=== PATIENT | female | born 1945 | race Caucasian/White ===

== ENCOUNTER 2021-01-22 13:29 | Emergency (ER) | payer MEDICARE, SELFPAY ==
[2021-01-22 13:38] VITALS: BP 158/81; PULSE 89; RESP 16; TEMP 36.6; O2SAT 98
--- NOTE | 2021-01-22 13:53 | ED.EYEPROB ---
HPI - Eye Problem General Chief complaint: Eye Problems Stated complaint: Redness around both Eyes Time Seen by Provider: 01/22/21 13:54 Source: patient and RN notes reviewed Mode of arrival: ambulatory Limitations: no limitations History of Present Illness HPI Narrative: 75-year-old female presents concern for itching around both eyes. Reports symptoms started 2 weeks ago, she began using [id number] allergy pills and eyedrops which slightly improved symptoms, however symptoms did not resolve and have worsened. She denies purulent discharge, pain, vision changes. Denies upper respiratory symptoms. MD chief complaint: eye redness Related Data Home Medications Medication Instructions Recorded Confirmed atorvastatin 40 mg PO DAILY 01/22/21 01/22/21 gabapentin 800 mg PO TID 01/22/21 01/22/21 hydrocodone-acetaminophen 10 - 325 tablet PO Q4-6H PRN 01/22/21 01/22/21 valsartan-hydrochlorothiazide 1 tablet PO DAILY 01/22/21 01/22/21 Allergies Allergy/AdvReac Type Severity Reaction Status Date / Time No Known Allergies Allergy Verified 01/22/21 13:52 Review of Systems Review of Systems: CONSTITUTIONAL: Denies malaise, chills, sweats, or fever. EYES: Denies visual changes, redness, or discharge. ENT: Denies rhinorrhea, congestion, sinus pain, otalgia or sore throat. SKIN: Reports itchy rash around both eyes All systems reviewed & are unremarkable except as noted in HPI and below PMFSH Comments At time of signature, agree with nursing past medical, surgical, social and family history. There is no relevant family history pertinent to the presenting complaint Exam Narrative: GENERAL: Well-appearing, well-nourished, and in no acute distress. HEAD: Normocephalic, atraumatic. EYES: PERRLA, conjunctivae clear, sclera clear and EOMI. No drainage. ENT: Nares clear. Mucous membranes moist. NECK: Supple. CHEST: No respiratory distress. Speaks in full sentences. HEART: Regular rate and rhythm. SKIN: Warm, dry. Erythematous rash noted around both eyes, eyelids NEURO: Alert and oriented x3. PSYCH: Normal mood and affect Course Course Emergency Course: Patient is aware of diagnosis, understands and agrees to treatment plan. Anticipatory guidance given. Patient agrees to follow-up as directed and is aware of reasons to seek care at the emergency department. Portions of this record may have been created with voice recognition software Vital Signs Vital signs: Vital Signs Temperature 97.8 F 01/22/21 13:38 Pulse Rate 89 01/22/21 13:38 Respiratory Rate 16 01/22/21 13:38 Blood Pressure 158/81 H 01/22/21 13:38 Pulse Oximetry 98 01/22/21 13:38 Temperature 97.8 F 01/22/21 13:38 Pulse Rate 89 01/22/21 13:38 Respiratory Rate 16 01/22/21 13:38 Blood Pressure 158/81 H 01/22/21 13:38 Pulse Oximetry 98 01/22/21 13:38 Reviewed. Patient has history of hypertension MDM - Eye Problem MDM Narrative Medical decision making narrative: Exam findings show no acute concerns or changes; patient is non-toxic appearing and is in no distress. Patient is appropriate for outpatient treatment and follow-up. Differential Diagnosis Differential diagnosis: Likely conjunctivitis, periorbital cellulitis and other (Eyelid dermatitis) Critical Care Time Critical Care Time Critical Care Time: No Discharge Plan Discharge Clinical Impression: Dermatitis of eyelid Qualifiers: Dermatitis of eyelid type: unspecified Laterality: bilateral Qualified Code(s): H01.9 - Unspecified inflammation of eyelid Patient Disposition: Home, Self-Care Condition: Stable Instructions: Dermatitis (ED) Additional Instructions: Avoid rubbing and scratching her eyelids. Only touch her eyelids with clean, rinsed hands. Wash her eyelids with plain soap and water or a sensitive cream cleanser. Avoid contact with any potential allergens. Avoid cosmetics. If symptoms persist, worsen please make an appointment with your primary care
[2021-01-22 13:57] VITALS: BP 158/81; PULSE 89; RESP 16; TEMP 36.6; O2SAT 98
== END 2021-01-22 14:20 | disposition home or self-care (01) ==
PROVIDERS: Emergency Provider Nurse Practitioner; PCP Internal Medicine
DX: L30.9 Dermatitis, unspecified (principal); E78.00 Pure hypercholesterolemia, unspecified; I10 Essential (primary) hypertension
CPT/HCPCS: 99203; G0463

== ENCOUNTER 2021-03-29 16:12 | Emergency (ER) | payer MEDICARE, SELFPAY ==
[2021-03-29 16:22] VITALS: BP 146/73; PULSE 82; RESP 16; TEMP 36.6; O2SAT 98
[2021-03-29 16:37] VITALS: BP 146/73; PULSE 82; RESP 16; TEMP 36.6; O2SAT 98
--- NOTE | 2021-03-29 16:41 | ED.URI ---
HPI - URI/Sore Throat General Chief Complaint: Upper Respiratory Infection Stated Complaint: Congestion, Runny nose Time Seen by Provider: 03/29/21 16:41 Source: patient Mode of arrival: ambulatory History of Present Illness HPI Narrative: PATIENT WAS COVID TESTED 2 DAYS AGO AND WAS NEGATIVE. PATIENT CONTINUES TO HAVE NASAL CONGESTION. PATIENT IS NOT TAKING ANYTHING OVER THE COUNTER FOR HER SYMPTOMS. MD elicited complaint: nasal congestion Pertinent past history: COPD Related Data Home Medications Medication Instructions Recorded Confirmed atorvastatin 40 mg PO DAILY 01/22/21 03/29/21 gabapentin 800 mg PO TID 01/22/21 03/29/21 hydrocodone-acetaminophen 10 - 325 tablet PO Q4-6H PRN 01/22/21 03/29/21 valsartan-hydrochlorothiazide 1 tablet PO DAILY 01/22/21 03/29/21 carvedilol 12.5 mg PO BID 03/29/21 03/29/21 hydrochlorothiazide 25 mg PO DAILY 03/29/21 03/29/21 potassium 99 mg PO DAILY 03/29/21 03/29/21 Allergies Allergy/AdvReac Type Severity Reaction Status Date / Time No Known Allergies Allergy Verified 03/29/21 16:33 Review of Systems Review of Systems: CONSTITUTIONAL: Denies chills, or sweats. Reports fever and generalized body aches EYES: Denies visual changes, redness, or discharge. ENT: Denies otalgia. Reports nasal congestion runny nose and sore throat CARDIOVASCULAR: Denies chest pain, palpitations, or edema. RESPIRATORY: Denies dyspnea. Reports occasional cough GASTROINTESTINAL: Denies abdominal pain, nausea, vomiting, or diarrhea. GENITOURINARY: Denies dysuria or hematuria. SKIN: Denies rash or itching. MUSCULOSKELETAL: Denies back pain, joint pain, or myalgia. Reports generalized body aches NEUROLOGIC: Denies headache, numbness, or weakness. PSYCHIATRIC: Denies anxiety or depression. PMFSH Comments At time of signature, agree with nursing past medical, surgical, social and family history. There is no relevant family history pertinent to the presenting complaint Exam Narrative: The patient is a well-developed, well-nourished in no acute distress. SKIN: Skin is warm and dry without erythema, swelling or exudate. There is good turgor. No tenting. HEAD: Atraumatic. Normocephalic. No temporal or scalp tenderness. EYES: Moist and bright. Sclera and conjunctivae normal. No discharge. PERRLA. Extraocular motions intact. Gross visual acuity intact. EARS: Pinna is normal shape and contour. Clear external auditory canals. TM pearly cesar with good cone of light, no erythema or suppuration. Bilateral cerumen noted no gross hearing deficit. NOSE: pink, moist mucosa with good air movement. Clear rhinorrhea without nasal flaring. Septum midline. Mouth: moist mucous membranes. THROAT; mild erythema noted to posterior oropharynx with moderate postnasal drainage. Without exudate or ulceration.. Uvula midline. Normal movement of soft palate. NECK: Supple and nontender with full range of motion without discomfort. No meningeal signs. LUNGS: Equal and bilateral breath sounds without wheezes, rales or rhonchi. CHEST: The chest wall is without retractions or use of accessory muscles. HEART: Has a regular rate and rhythm without murmur, gallops, click or rub. ABDOMEN: Soft, nontender with positive active bowel sounds. No rebound tenderness. EXTREMITIES: Without cyanosis, clubbing or edema. Equal 2+ distal pulses and 2 second capillary refill noted. NEUROLOGIC: alert, active, . The patient moves all extremities with normal muscle strength. Normal muscle tone is noted. Normal coordination is noted. NO focal neurological findings noted. Course Vital Signs Vital signs: Vital Signs Temperature 36.6 C 03/29/21 16:22 Pulse Rate 82 03/29/21 16:22 Respiratory Rate 16 03/29/21 16:22 Blood Pressure 146/73 H 03/29/21 16:22 Pulse Oximetry 98 03/29/21 16:22 Temperature 36.6 C 03/29/21 16:37 Pulse Rate 82 03/29/21 16:37 Respiratory Rate 16 03/29/21 16:37 Blood Pressure 146/73 H 03/29/21 16:37 Pulse Oxime
== END 2021-03-29 16:50 | disposition home or self-care (01) ==
PROVIDERS: Emergency Provider Nurse Practitioner Family; PCP Internal Medicine
DX: J06.9 Acute upper respiratory infection, unspecified (principal); G62.9 Polyneuropathy, unspecified; E78.00 Pure hypercholesterolemia, unspecified; I10 Essential (primary) hypertension
CPT/HCPCS: 73502; 99213; G0463

== ENCOUNTER → 2021-03-29 17:15 | Outpatient (CLI) | payer MEDICARE, SELFPAY ==
--- NOTE | ~2021-03-29 | XR_ITS ---
EXAMINATION: XR hip RT min 2V DATE: 03/29/2021 17:33 INDICATION: Right hip pain. TECHNIQUE: 2 views of right hip were obtained. COMPARISON: None. FINDINGS: Bone alignment is normal. No fracture. There is severe right hip osteoarthritis. IMPRESSION: 1. Severe right hip osteoarthritis. Reviewed, dictated and finalized at location A.
== END ==
PROVIDERS: PCP Internal Medicine; Referring Provider Anesthesiology; Visit Provider Anesthesiology
DX: M25.551 Pain in right hip (principal); M16.11 Unilateral primary osteoarthritis, right hip
CPT/HCPCS: 73502

== ENCOUNTER 2021-09-15 15:27 | Emergency (ER) | payer MEDICARE, SELFPAY ==
--- NOTE | 2021-09-15 15:33 | ED.EYEPROB ---
HPI - Eye Problem General Chief complaint: Eye Problems Stated complaint: Eye Problem Time Seen by Provider: 09/15/21 15:33 Source: patient and RN notes reviewed History of Present Illness HPI Narrative: Patient is a 76-year-old female who presents the urgent care with complaints of bilateral eye irritation. Patient states it started 2 weeks ago and she has had increased watery eyes, itching and surrounding redness. Patient states she has been putting antiitch cream around the eyes and using refresh drops. Patient denies of any injury to the eye. States that this happened last year and seemed to improve it with some cream. However the cream has not been working this time around. No other acute complaints. Denies any vision changes. No acute distress noted. Patient aware of the plan of care. Some parts of this dictation were generated by voice recognition software and may contain typographical and/or grammatical inaccuracies. Related Data Home Medications Medication Instructions Recorded Confirmed atorvastatin 40 mg PO DAILY 01/22/21 09/15/21 gabapentin 800 mg PO TID 01/22/21 09/15/21 hydrocodone-acetaminophen 10 - 325 tablet PO Q4-6H PRN 01/22/21 09/15/21 valsartan-hydrochlorothiazide 1 tablet PO DAILY 01/22/21 09/15/21 carvedilol 12.5 mg PO BID 03/29/21 09/15/21 hydrochlorothiazide 25 mg PO DAILY 03/29/21 09/15/21 potassium 99 mg PO DAILY 03/29/21 09/15/21 Allergies Allergy/AdvReac Type Severity Reaction Status Date / Time No Known Allergies Allergy Verified 09/15/21 15:42 Review of Systems Review of Systems: CONSTITUTIONAL: Denies fever, chills, or sweats. EYES: Reports of bilateral eye redness, itchiness and watery eyes ENT: Denies rhinorrhea, congestion, sore throat, or otalgia. CARDIOVASCULAR: Denies chest pain, palpitations, or edema. RESPIRATORY: Denies cough or dyspnea. GASTROINTESTINAL: Denies abdominal pain, nausea, vomiting, or diarrhea. GENITOURINARY: Denies dysuria or hematuria. SKIN: Denies rash or itching. MUSCULOSKELETAL: Denies back pain, joint pain, or myalgia. NEUROLOGIC: Denies headache, numbness, or weakness. All other systems reviewed are negative, except as documented in HPI. PMFSH Comments At the time of my signature, I reviewed and agree with the nursing past medical, surgical, social, and family history. There is no relevant family history pertinent to the patient complaint. Exam Narrative: GENERAL: This is a well-nourished, well-developed patient, in no apparent distress. HEAD: normocephalic, atraumatic. EYES: PERRL. Moderately injected conjunctive a with mild bilateral edema to upper eyelids. Moderately surrounding erythemic periorbital dermatitis EARS: External ears normal NOSE: External nose normal with no obvious nasal discharge, nares without redness, no rhinorrhea. THROAT: Mucous membranes moist NECK: Neck supple CARDIOVASCULAR: Regular rate and rhythm without murmurs, gallops, or rubs. RESPIRATORY: Clear to auscultation. Breath sounds equal bilaterally. No wheezes, rales, or rhonchi. SKIN: warm, intact with no suspicious lesions or rash, good texture and turgor. NEURO: awake, alert, and oriented to person, place and time. There were no obvious focal neurologic abnormalities. EXTREMITIES: No clubbing, cyanosis, or edema. Course Course Level of Care: Express Care Visit Vital Signs Vital signs: Vital Signs Temperature 99.1 F 09/15/21 15:35 Pulse Rate 84 09/15/21 15:35 Respiratory Rate 14 09/15/21 15:35 Blood Pressure 149/68 H 09/15/21 15:35 Pulse Oximetry 97 09/15/21 15:35 Temperature 99.1 F 09/15/21 15:35 Pulse Rate 84 09/15/21 15:35 Respiratory Rate 14 09/15/21 15:35 Blood Pressure 149/68 H 09/15/21 15:35 Pulse Oximetry 97 09/15/21 15:35 Reviewed-patient is informed that they may have pre-hypertension or hypertension based on a blood pressure reading in the department. I recommend the patient call the primary care provider listed on t
[2021-09-15 15:35] VITALS: BP 149/68; PULSE 84; RESP 14; TEMP 37.3; O2SAT 97
== END 2021-09-15 16:05 | disposition home or self-care (01) ==
PROVIDERS: Emergency Provider Nurse Practitioner Family; PCP Internal Medicine
DX: L30.9 Dermatitis, unspecified (principal); E78.00 Pure hypercholesterolemia, unspecified; I10 Essential (primary) hypertension
CPT/HCPCS: 99213; G0463

== ENCOUNTER 2025-02-27 11:53 | Emergency (ER) | payer MEDICARE, SELFPAY ==
--- OUTSIDE RECORDS SUMMARY | 2024-08-13 05:00 | XMS_ITS ---
Author Organization [facility] Address [address] [place] [address] [address] [address] Care Team Providers Care Repairer Art Objects Name Role Phone Salvatore Tavarez Primary Care Provider Unavail able Samanta Pagan Unavailable [phone] Encounters Encounter Location Date Provider Diagnosis [address] [place], [place] [id number] 08/13/2024 Samanta Pagan Plan Of Treatment Next Appt Details Provider Name:Samanta Dietz i, 05/06/2025 01:30:00 PM, [address] [place] [address], [address], [place], [place], [id number], Progress Notes * PUGHColleenirene SolisDOB:1945 ( 79 yo F)Acc No.[id number]:08/13/2024 Progress Notes Patient: Licha SAAVEDRA Provider: Shabnam Pagan MD :1945 A ge:78 Y S ex:Female Date:08/13/2024 Address:[address] [place], [place] [id number] Pcp:Salvatore Tavarez Subjective: * Chief Complaints: * * Medical History: Objective: * Vitals: Assessment: Plan: * Treatment: * Images: * Electronic signature of Hawa Pagan on 02/27/2025 at 12:21 PM CDT Sign off status: Pending * Provider: Shabnam Pagan MD Date: 0 08/13/2024 Generated for Benito perez/Jc/eTransmitting on: 0 02/27/2025 12:21 PM CDT
--- OUTSIDE RECORDS SUMMARY | 2024-08-27 06:30 | XMS_ITS ---
Author Organization [facility] Address [address] [place] [address] [place] [address] Care Team Providers Care Mold Changer Name Role Phone VEENA HUANG MD Primary Care Provider Jian Aric Kim Unavailable [phone] REASON FOR VISIT Left > Right Low Back Pain MEDICATIONS Medication SIG (Take, Route, Frequency, Duration) Notes Start Date End Date Status HYDROcodone-Acetaminophen 10-325 MG 1 tablet as needed Orally every 6 hrs Active Valsartan-hydroCHLOROthiazi de 160-25 MG 1 tablet Orally Once a day Active Gabapentin 800 MG 1 tablet Orally 3x/day Active Aspirin 325 MG 1 tablet Orally Once a day for 30 day(s) Active Carvedilol 12.5 MG 1 tablet with food O rally Twice a day for 30 day(s) Active Vitamin B12 100 MCG as directed Orally Active Magnesium 400 MG as directed Orally Active Cephalexin 500 MG 1 capsule Orally nery ry 6 hrs for 7 days 03/16/2022 Active Atorvastatin Calcium 40 MG 1 tablet Oral ly Once a day for 30 day(s) Active VITAL SIGNS Blood pressure systolic 152 mm Hg 08/28/19 25 Blood pressure diastolic 89 mm Hg 025 Heart Rate 86 /min 08/27/2024 Respiratory Rate 18 /min 08/27/2024 Height 4 ft 11 in in 08/27/2024 Weight 211 lbs 08/27/2024 BMI 42.61 kg/m2 08/27/2024 Oximetry 97 % 08/27/2024 Post procedure VS: ET=673/99 , P=85, R=18, Spo2= 97%Pain= 7/10.Discharged home ambulatory with walker assistance and self in no acute distress. Encounters Encounter Location Date Provider Diagnosis [facility] [address] [place] [address] 08/27/2024 Aric Mirta Spondylosis without myelopathy or radiculopathy, lumbar region M47.816 and Spondylosis without myelopathy or radiculopathy, lumbosacral region M47.817 ASSESSMENTS Encounter Date Diagnosis Assessment Notes Treatment Notes Treatment Clinical Notes Section Notes 08/27/2024 Spondylosis without myelopathy or radiculopathy, lumbar region (ICD-10 - M47.816) 08/27/2024 Spondylosis without myelopathy or radiculopathy, lumbosacral region (ICD-10 - M47.817) 08/27/2024 Other The patient voiced understanding of the treatment plan and all questions were addressed. Obtain informed consent: Bilateral Lumbar 1-3 Medial Branch Nerve Block under fluoroscopy. Monitor pulse, blood pressure and SaO2 before, after and as needed during procedure. Verify if the patient is currently taking blood thinner. Verify patients is not currently on antibiotics for infection. Patient may drive home. CARE PLAN: Knowledge deficit: Will verbalize understanding of the proposed procedure, including risk of electrical burn, complications and benefits of the procedure? Will the patient exhibit understanding of the discharge instructions? Safety: The potential for injury related to surgery was assessed; Fire risk score determined, test completed if applicable. Risk for injury related to wrong patient, site, procedure. TIME OUT for safety of patient and includes patient name, , procedure site, side, level, allergies, blood thinners, antibiotics, surgical counts, consents correct and signed etc. Risk for infection: Implements aseptic technique, protects from cross-contaminati on, performs skin preparations. Pain/Discomfort: Patient verbalizes acceptable level of pain relief prior to discharge and the ability to engage in desired activity. I HAVE REVIEWED THE PATIENT'S MEDICATION LIST AND HAVE RECONCILED THE ABOVE MEDICATIONS. PATIENT GOALS AND SAFETY CONCERNS HAVE BEEN ADDRESSED. RN initials CR PLAN OF TREATMENT Treatment Notes Assessment Notes Other The patient voiced understanding of the treatment plan and all questions were addressed. Obtain informed consent: Bilateral Lumbar 1-3 Medial Branch Nerve Block under fluoroscopy. Monitor pulse, blood pressure and SaO2 before, after and as needed during procedure. Verify if the patient is currently taking blood thinner. Verify patients is not currently on antibiotics for infection. Patient may drive home. CARE PLAN: Knowledge deficit: Will verbalize understanding of the proposed procedure, including risk of electrical burn, complications and benefits of the procedure? Will the patient exhibit understanding of the discharge instructions? Safety: The potential for injury related to surgery was assessed; Fire risk score determined, test completed if applicable. Risk for injury related to wrong patient, site, procedure. TIME OUT for safety of patient and includes patient name, , procedure site, side, level, allergies, blood thinners, antibiotics, surgical counts, consents correct and signed etc. Risk for infection: Implements aseptic technique, protects from cross-contamination, performs skin preparations. Pain/Discomfort: Patient verbalizes acceptable level of pain relief prior to discharge and the ability to engage in desired activity. I HAVE REVIEWED THE PATIENT'S MEDICATION LIST AND HAVE RECONCILED THE ABOVE MEDICATIONS. PATIENT GOALS AND SAFETY CONCERNS HAVE BEEN ADDRESSED. RN initials CR Next Appt Details Follow Up: Left L4-5+L5-S1 T FE on 09/03, Reason: Procedure Notes * Category Sub-Category Detail Notes Medial Branch Nerve Block Procedure: L1-3 M edial Branch Nerve Block Under Fluoroscopy Location: Bilateral Anesthesia: Local without IV sed ation Operative Technique: After the risks, be nefits, alternative treatment options and potential complications related to the procedure were discussed, informed consent was obtained. The specific risks of this procedure including pain, bleeding, infection, nerve damage, spinal cord injury, paralysis, total spinal anesthesia resulting in cardiopulmonary arrest/, respiratory distress requiring intubation, neuritis after radiofrequency ablation, hyperglycemia, insomnia, hair loss, muscle atrophy, skin depigmentation, weight gain, fluid retention, adrenal suppression, osteoporosis resulting in fractures, avascular necrosis of the hip, cataracts, bleeding gastric ulcer, worsening pain and failure to relieve pain were discussed and the patient is agreeable to proceeding at this time. The patient was placed in the prone position on the fluoroscopy table. Standard ASA monitors were applied. The back was prepped and draped in the usual sterile fashion with chlorhexidine 2%/IPA 70%. The bilateral L2, L3 and L4 pedicles were identified with x-ray using an AP view. A 23 gauge 3.5 inch spinal needle was inserted in a gun barrel fashion to the junction of the superior articular process and transverse process at the upper outer quadrant of the pedicle until periosteum was contacted at each level bilaterally. 3 mL of 0.25% Preservative-Free bupivacaine was mixed. After negative aspiration for blood, air or CSF, 0.5 mL of this solution was injected at each level, blocking the bilateral L1-3 medial branch nerves. The needles were then removed, the skin was cleaned and band-aids were placed over the puncture sites. The patient tolerated the procedure well, was able to ambulate without difficulty and was monitored for 20 minutes. The patient remained hemodynamically and neurologically stable. No complications were observed. The patient noted a 90% reduction in his typical back pain associated with extension and lateral rotation of the lumbar spine. Postoperative instructions were reviewed with the patient. The patient was discharged home in good condition with a independent driver. X-ray time: 14 seconds Safe Surgery Practices First Critical Point Isabelle ent identified by verbal and ID band. Surgical site marked. Assessement of allergies, airway and aspiration risk. Assessed if patient is on anticoagulant. Operataive Consent signed. Patient has discussed procedure with physician, Damaris Amezcua 08/27/2024 11:31:27 AM > Second Critical Point TIME OUT: Confirm patient identity, procedure and surgical incision site. Patient in proper position and safety straps placed appropriately. ASA score:3 Fire Risk Score:1. Alcohol based prep solution had significant time for fumes to dissipate. Confirm surgical team truck driver and roles. Anticipated critical events. Essential imaging displayed as appropriate. Fluoroscopy precautions taken if applicable. Equipment and supplies in room. Verify patient is not if applicable, Damaris Amezcua 08/27/2024 11:31:31 AM > Third Critical Point SAFE SURGERY PRACTI ODALYS-POST: Complete count of surgical instruments and accessories. Identify more patient concerns for recovery and management of the patient. Patient remains free from injury related to surgery. The patient tolerated the procedure well and there were no complications. The patient was taken to the recovery area. The patient remained in stable condition with no apparent complications. Vital signs stable. Injection/procedure/surgical site clean, dry and intact. Post procedure discharge instructions were give to the patient and a follow up appointment was confirmed. The patient was discharged with information on how to reach the clinic at anytime for questions or concerns. Patient discharged ambulatory. Patient denies complaints or questions, Damaris Amezcua 08/27/2024 12:17:35 PM > Progress Notes * Examination Category Sub-Category Detail Notes Category Not es Examination/ Pre-Anesthesia Assessment General: The patient is alert and oriented X 3 in moderate distress secondary to pain HEENT: Normocephalic, atrau matic. PERRL. The oropharynx is clear Neck: There is full range of motion of the cervical spine Heart: Regular rate and rhy thm Chest: Clear to auscultatio n bilaterally Abdomen: Soft, obese and jeramy gn Musculoskeletal and Extremities: There i s tenderness to palpation over the bilateral L2-3 through L5-S1 facet joints. Extension and lateral rotation of the lumbar spine reproduces the patient's typical axial low back pain. Luma's, [place]'s and Gaenslen's are positive on the right. There is tenderness to palpation over the right sacroiliac joint and greater trochanter. There is tenderness to palpation over the bilateral lumbar paraspinal. The patient's right hip pain is closely reproduced by the right hip abduction. The patient's midline low back and left buttock postoperative incisions are approximated and are healing without signs or symptoms of bleeding or dehiscence Neurological: There is positive st raight leg raising on the right. There are no focal strength deficits in bilateral lower extremities Skin: Clean, dry and intac t. Post permanent SCS implant incisions- axial low back and left buttock are well approximated and are healed without s/so of infection or bleeding Psychiatric: Mood and affect are normal History and Physical Notes * HPI (History of Present Illness) Category Sub-Category Detail Notes Category Not es Pain Management Radiographic Imaging Includes an MRI lumbar spine done on 01/19/21 demonstrating an L3-5 laminectomy. At L2-3 demonstrates an annular disc bulge in combination with facet arthropathy and ligamentum flavum thickening there is severe central canal and severe right foraminal stenosis. At L3-4 there is severe right foraminal stenosis. At L4-5 there is left greater than right lateral recess stenosis. At L5-S1 there is left greater than right lateral recess stenosis. An x-ray of the right hip done on 03/29/2021 demonstrates severe right hip osteoarthritis Assessment and Follow-up: Follow-up Plan [email or web address] ari:: Yes MIPS Quality 2020: MIPS Documented:: Compliant
--- OUTSIDE RECORDS SUMMARY | 2024-08-28 03:24 | XMS_ITS ---
Author Organization [facility] Address [address] [place] [address] [place] [address] Care Team Providers Care Box Toe Flanger Stitchdowns Name Role Phone VEENA HUANG MD Primary Care Provider Unav ailAric Barahona Unavailable [phone] REASON FOR VISIT Post Procedure Follow Up Call Encounters Encounter Location Date Provider Diagnosis [facility] [address] [place] [address] 08/28/2024 Aric Kirby PLAN OF TREATMENT No Information
--- OUTSIDE RECORDS SUMMARY | 2024-09-03 06:15 | XMS_ITS ---
Author Organization [facility] Address [address] [place] [address] [place] [address] Care Team Providers Care Wood Tool Maker Name Role Phone REINA HODGES, VEENA Primary Care Provider Jian Aric Kim Unavailable [phone] REASON FOR VISIT Left > Right Low Back Pain, Left Lower Exremity Pain MEDICATIONS Medication SIG (Take, Route, Frequency, Duration) Notes Start Date End Date Status HYDROcodone-Acetaminophen 10-325 MG 1 tablet as needed Orally every 6 hrs Active Atorvastatin Calcium 40 MG 1 tablet Oral ly Once a day for 30 day(s) Active Magnesium 400 MG as directed Orally Active Vitamin B12 100 MCG as directed Orally Active Gabapentin 800 MG 1 tablet Orally 3x/day Active Valsartan-hydroCHLOROthiazi de 160-25 MG 1 tablet Orally Once a day Active Aspirin 325 MG 1 tablet Orally Once a day for 30 day(s) Active Carvedilol 12.5 MG 1 tablet with food O rally Twice a day for 30 day(s) Active VITAL SIGNS Blood pressure systolic 134 mm Hg 09/04/19 25 Blood pressure diastolic 88 mm Hg 025 Heart Rate 78 /min 09/03/2024 Respiratory Rate 18 /min 09/03/2024 Height 4 ft 11 in in 09/03/2024 Weight 211 lbs 09/03/2024 BMI 42.61 kg/m2 09/03/2024 Oximetry 94 % 09/03/2024 Post procedure VS=BP 127/71, P 66, R 18, Spo2=94%.Discharged home per ambulatory with walker assistance, in no acute distress. 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 Obtain informed consent: Left Lumbar 4-5+ Lumbar 5-Sacral 1Transforaminal Epidural Streoid Injection under fluoroscopy. Monitor pulse, blood pressure and [...] all questions were addressed. Obtain informed consent: Left Lumbar 4-5+ Lumbar 5-Sacral 1Transforaminal Epidural Streoid Injection under fluoroscopy. Monitor pulse, blood pressure and [...] initials CR Next Appt Details Follow Up: F/U 09/10/24, Reas on: Procedure Notes * Category Sub-Category Detail Notes Transforaminal Epidural Steroid Injection Locati on Left Levels L4-5, L5-S1 Anesthesia Local without IV sed ation Operative Technique After the risks, autumn efits, alternative treatment options and potential complications related to the procedure were discussed, informed consent was obtained. The specific risks of this procedure including pain, bleeding, infection, spinal headache, persistent spinal fluid leak, epidural hematoma, nerve damage, spinal cord injury, paralysis, total spinal anesthesia resulting in cardiopulmonary arrest/, respiratory distress requiring intubation, insomnia, hyperglycemia, hair loss, muscle atrophy, skin depigmentation, weight gain, fluid retention, adrenal suppression, immunosuppression, osteoporosis resulting in fractures, avascular necrosis of the hip, cataracts, bleeding gastric ulcer, worsening pain and failure to relieve pain were discussed and the patient is agreeable to proceeding at this time. The patient was placed in the prone position on the fluoroscopy table and standard ASA monitors were applied. The back was prepped and draped in the usual sterile fashion with chlorhexidine 2%/IPA 70%. The c-arm was obliqued and tilted to identify the above selected levels. The left L4-5 + L5-S1 neural foramina were identified and a 23 gauge 3.5 inch spinal needle was inserted under fluoroscopic guidance towards the junction of the inferior endplate and superior articular process until the superior articular process was contacted at both levels. A lateral view was taken and the needle tip was advanced into the posterior aspect of the neuroforamen. The subcutaneous structures were anesthetized with 3 mL of 1% Preservative-Free lidocaine during needle placement. An AP view was taken and after negative aspiration for blood, air or CSF, 4 mLs (2 mLs at each level) of Omnipaque 240 contrast dye was injected under live fluoroscopy for an epidurogram showing good spread within the epidural space and along the selected nerve root. No intravascular or intrathecal spread was noted. A solution of 10 mg of Preservative-Free Dexamethasone (10 mg/mL), plus 3 mL of 0.25% Preservative-Free bupivacaine was mixed and after negative aspiration 2 mL of this solution was slowly injected into the epidural space at each level. The needles were removed, the skin was cleaned and band-aids were placed over the puncture sites. The patient tolerated the procedure well, was able to ambulate without difficulty and was monitored for 20 minutes. Patient reports a 90% reduction in typical pain immediately postprocedure. The patient remained hemodynamically and neurologically stable. No apparent complications were observed. Postoperative instructions were reviewed with the patient. The patient was then discharged home in good condition with a pizza delivery driver. X-ray time: 22 seconds Safe [facility] Practices First Critical Point Isabelle ent identified by verbal and ID band. Surgical site marked. Assessement of allergies, airway and aspiration risk. Assessed if patient is on anticoagulant. Operataive Consent signed. Patient has discussed procedure with physician, Damaris Amezcua 09/03/2024 11:23:12 AM > Second Critical Point TIME OUT: Confirm patient identity, procedure and surgical incision site. Patient in proper position and safety straps placed appropriately. ASA score:3 Fire Risk Score:1. Alcohol based prep solution had significant time for fumes to dissipate. Confirm surgical prepared foods team leader and roles. Anticipated critical events. Essential imaging displayed as appropriate. Fluoroscopy precautions taken if applicable. Equipment and supplies in room. Verify patient is not if applicable, Damaris Amezcua 09/03/2024 11:23:15 AM > Third Critical Point SAFE SURGERY [...] Patient denies complaints or questions, Damaris Amezcua 09/03/2024 12:07:27 PM > Progress Notes * Examination Category [...] patient's typical axial low back pain. Luma's, [place]'s and Gaenslen's are positive on the right. [...] hip osteoarthritis Assessment and Follow-up: Follow-up Plan documen ari:: Yes MIPS Quality 2020: MIPS Documented:: Compliant
--- OUTSIDE RECORDS SUMMARY | 2024-09-04 03:59 | XMS_ITS ---
Author Organization [facility] Address [address] [facility] [facility] [place] [address] Care Team Providers Care Stone Polisher Hand Name Role Phone [facility] Primary Care Provider Unav ailAric Barahona Unavailable [phone] REASON FOR VISIT Post Op Call Encounters Encounter Location Date Provider Diagnosis [facility] [address] [facility] [place] [address] 09/04/2024 Aric Kirby PLAN OF TREATMENT No Information
--- OUTSIDE RECORDS SUMMARY | 2024-09-10 06:45 | XMS_ITS ---
Author Organization [facility] Address [address] [facility] [place] [address] Care Team Providers Care Cashier And Waiter/Waitress Name Role Phone VEENA HUANG MD Primary Care Provider Unav ailAric Barahona Unavailable [phone] REASON FOR VISIT FOLLOW UP Encounters Encounter Location Date Provider Diagnosis [facility] [address] [facility] [place] [address] 09/10/2024 Aric Kirby PLAN OF TREATMENT No Information History and Physical Notes * HPI (History [...]
--- NOTE | 2025-02-27 11:59 | ED.EAR ---
HPI - Ear Problem General Chief complaint: Ear Stated complaint: Ear Pain Time Seen by Provider: 02/27/25 12:07 Source: patient, RN notes reviewed and old records reviewed Mode of arrival: ambulatory Limitations: no limitations History of Present Illness HPI Narrative: 79-year-old female presents to the [facility] with complaints of having left ear pain 3 days ago with redness. No pain currently. States that she took the amoxicillin that her dentist gives your which she believes helps. States she has had issues like this on and off quite a while, states that area is crust over and she just takes it off. Wears bilateral hearing aids Related Data Home Medications ?Medication ?Instructions ?Recorded ?Confirmed ?Last Taken ?Type atorvastatin 40 mg tablet 40 mg PO DAILY 01/22/21 09/15/21 Unknown History gabapentin 800 mg tablet 800 mg PO TID 01/22/21 09/15/21 Unknown History hydrocodone 10 mg-acetaminophen 10 - 325 tablet PO Q4-6H PRN Pain 01/22/21 09/15/21 Unknown History 325 mg tablet carvedilol 12.5 mg tablet 12.5 mg PO BID 03/29/21 09/15/21 Unknown History potassium 99 mg tablet 99 mg PO DAILY 03/29/21 09/15/21 Unknown History duloxetine 30 mg capsule,delayed mg PO 02/27/25 Unknown History release Allergies Allergy/AdvReac Type Severity Reaction Status Date / Time No Known Allergies Allergy Verified 09/15/21 15:42 Review of Systems Review of Systems: All systems reviewed & are unremarkable except as noted in HPI and below Constitutional: Constitutional: Reports no additional constitutional complaints ENT: Reports as per HPI Musculoskeletal: Musculoskeletal: Reports no additional musculoskeletal complaints Integumentary/Breasts: Skin/Breast: Reports system reviewed and no additional complaints, except as docu PMFSH Comments At the time of my signature, I reviewed and agree with the nursing past medical, surgical, social, and family history. There is no relevant family history pertinent to the patient complaint. Exam Const: General: cooperative, no acute distress, well developed, alert, ill appearing chronically; not acutely and well nourished Nutritional Appearance: well nourished and obese Orientation/consciousness: patient oriented x3 Limitations: no limitations HENMT: Head: normal to inspection Ears: TM's normal bilaterally, EAC's normal, mastoids normal and no periauricular adenopathy Outer ear/TM images:  1. Crusting with possible abrasion, surrounding erythema, no swelling, no fluctuance, no drainage Mouth: Yes Normal oral and palatal mucosa present, Yes lip normal, Yes tongue normal and Yes moist mucous membranes Throat: posterior oropharynx normal Eyes: General: appearance normal, both eyes and all related structures Alignment and Position: alignment normal Neck: Neck: normal visual inspection, full ROM, no lymphadenopathy and no meningeal signs Chest: Chest palpation & inspection: normal inspection of the chest Resp: Effort & Inspection: normal respiratory effort and able to speak in complete sentences Cardio: Rate: regular rate Skin: General skin exam: normal color and no rashes or lesions noted Neuro: General: patient oriented x3, gait normal, moves all extremities and no meningeal signs Cognition (Neuro): normal cognition Speech: normal speech Gait exam (Neuro): Normal gait present Extrem: General: normal to inspection, full ROM, capillary refill normal and normal gait Psych: Appearance: grossly normal and well kempt Mental Status: mental status grossly normal Speech and movement: Normal speech and movement present and Clear speech present Affect: normal affect Attitude: cooperative Course Course Level of Care: Express Care Visit Vital Signs Vital signs: Vital Signs Temperature 98.3 F 02/27/25 12:10 Pulse Rate 76 02/27/25 12:10 Respiratory Rate 18 02/27/25 12:10 Blood Pressure 142/68 H 02/27/25 12:10 Pulse Oximetry 95 02/27/25 12:10 Oxygen Delivery Room Air 02/27/25 12:10 Temperature 98.3 F 02/27/25 12:10 Pulse Rate 76 02/27/25 12:10 Respiratory Rate 18 02/27/25 12:10 Blood Pressure 142/68 H 02/27/25 12:10 Pulse Oximetry 95 02/27/25 12:10 Oxygen Delivery Room Air 02/27/25 12:10 Reviewed Medical Decision Making MDM Narrative Medical decision making narrative: Patient sitting in exam room. Patient presents with 3 day history of left upper ear discomfort externally, redness, pain. Currently with no pain. States that she took amoxicillin. Discussed that she should not be taking antibiotics, inappropriate use Mild pink, crusting noted to the inner upper ear Will cover with antibiotic, topical bacitracin Discussed importance of following up with primary care provider Discharge instructions reviewed with patient, as well as provided in writing per nursing staff. The instructions also include specific and strict return/GO TO THE ER as well as f/u information. All questions have been answered, and the patient deny any further questions with discharge and discharge plan. Some parts of this dictation were generated by voice recognition software and may contain typographical and/or grammatical inaccuracies. Differential Diagnosis Differential Diagnosis: Dermatitis, cellulitis Medical Records Medical records reviewed: Yes I reviewed the external patient's medical records. Vital Signs Vital Signs: Vital Signs Temperature 98.3 F 02/27/25 12:10 Pulse Rate 76 02/27/25 12:10 Respiratory Rate 18 02/27/25 12:10 Blood Pressure 142/68 H 02/27/25 12:10 Pulse Oximetry 95 02/27/25 12:10 Oxygen Delivery Room Air 02/27/25 12:10 Temperature 98.3 F 02/27/25 12:10 Pulse Rate 76 02/27/25 12:10 Respiratory Rate 18 02/27/25 12:10 Blood Pressure 142/68 H 02/27/25 12:10 Pulse Oximetry 95 02/27/25 12:10 Oxygen Delivery Room Air 02/27/25 12:10 Reviewed Lab Data Lab results reviewed: Yes I reviewed the patient's lab results. Labs: Reviewed Critical Care Time Critical Care Time Critical Care Time: No Discharge Plan Discharge Clinical Impression: Dermatitis of external ear Patient Disposition: Home Condition: Stable Instructions: Antibiotic Form, Dermatitis (ED) Additional Instructions: Wash area twice daily with warm soapy water, pat dry. Apply bacitracin after washing it twice a day. Take the oral antibiotic as prescribed Today your blood pressure was 142/68. Follow-up with your primary care provider this week For worsening symptoms go directly to the emergency room Patient Language: Cambodian Prescriptions: New doxycycline monohydrate 100 mg tablet 100 mg PO BID Qty: 14 0RF No Action loratadine [Claritin] 10 mg tablet 10 mg PO DAILY 14 Days Qty: 14 0RF carvedilol 12.5 mg Tablet 12.5 mg PO BID potassium 99 mg Tablet 99 mg PO DAILY prednisone 20 mg tablet See Rx Instructions .ROUTE .COMPLEX Qty: 7 0RF Rx Instructions: 20 mg orally ;Take 2 tablets daily for days 1 through 2, take 1 tablet daily days 3 through 5. atorvastatin 40 mg tablet 40 mg PO DAILY hydrocodone-acetaminophen 10-325 mg tablet 10 - 325 tablet PO Q4-6H PRN (Reason: Pain) gabapentin 800 mg tablet 800 mg PO TID duloxetine 30 mg capsule,delayed release(DR/EC) PO Follow-up/Referrals: Corby,Mateusz Cruz MD [Primary Care Provider] - 1 Week Clinical Impression: Dermatitis of external ear Time of Disposition: 12:20
[2025-02-27 12:10] VITALS: BP 142/68; PULSE 76; RESP 18; TEMP 36.8; O2SAT 95
--- OUTSIDE RECORDS SUMMARY | 2025-02-27 12:21 | XMS_ITS | Clinical Summary ---
Author Organization [facility] [address] [facility] Address [address] [place] [address] Care Team Providers Care Calender Operator Name Role Phone Salvatore Tavarez MD Primary Care Provider + Pan Radford MD Unavailable [phone] Allergies No known active allergies Medications multivit-minerals- ferrous fum (MULTI VITAMIN) 9 mg iron/15 mL liquid take 1 daily 0 0 09/06/19 14 Active cyanocobalamin (vitamin B-12) 1,000 mcg tablet take 1 by Oral route every day 90 3 09/04/19 14 Active aspirin 325 mg tablet take 1 tablet by oral route every day 0 0 03/30/20 16 Active atorvastatin (LIPITOR) 40 mg tablet TAKE ONE TABLET BY MOUTH AT BEDTIME 30 11 03/30/20 16 Active gabapentin (NEURONTIN) 800 mg tablet Take 1 tablet (800 mg total) by mouth 3 (three) times a day 04/25/20 22 Active valsartan-hydrochl orothiazide (DIOVAN-HCT) 160-25 mg per tablet 1 tablet Active carvediloL (COREG) 12.5 mg tablet every 12 hours Active magnesium oxide,aspartate,ci tr 400 mg magnesium capsule as directed Active multivitamin with minerals (Hair,Skin and Nails) tablet Take 1 tablet by mouth daily Active acidophilus-pectin , citrus 100 million cell-10 mg capsule Take by mouth daily Active ascorbic acid (VITAMIN C) 500 mg tablet,chewableInd ications:Vitamin deficiency prevention Take 1 tablet/chew tab (500 mg total) by mouth daily 30 tablet/chew tab 08/05/19 23 Active aspirin 325 mg enteric coated tabletIndications: Deep Vein Thrombosis Prevention Take 1 tablet (325 mg total) by mouth daily 42 tablet 08/05/19 23 Active ondansetron ODT (ZOFRAN-ODT) 4 mg disintegrating tabletIndications: nausea and vomiting Take 1 tablet (4 mg total) by mouth every 6 (six) hours as needed for nausea or vomiting 20 tablet 2 08/04/19 23 Active Additional Information Patient not taking.Reported on 05/13/2024 oxyCODONE-acetamin ophen (PERCOCET) 5-325 mg per tabletIndications: Pain Take 1-2 tablets by mouth every 4 (four) hours as needed for pain 40 tablet 08/04/19 Active Additional Information Patient not taking.Reported on 05/13/2024 senna-docusate (PERICOLACE) 8.6-50 mgIndications:cons tipation Take 2 tablets by mouth 2 (two) times a day 60 tablet 2 08/04/19 23 Active HYDROcodone-acetam inophen (NORCO) 10-325 mg per tablet Take 1 tablet by mouth 4 (four) times a day 08/30/19 23 Active amoxicillin (AMOXIL) 500 mg tablet/capsule Take 4 tabs by mouth 1 hour before procedure 4 tablet/capsu le 2 11/18/19 Active Active Problems Problem Noted Date Diagnosed Date Bilateral impacted cerumen 04/24/2023 Assessment & Plan (05/13/2024 2:07 PM PASSENGER SCREENER): Avoid ear cleaning techniques Follow up in one year Continue hearing aids Assessment & Plan (04/24/2023 12:11 PM CDT): Avoid ear cleaning techniques Follow up in one year Continue hearing aids Hip abductor tendinitis, right 11/01/2022 Trochanteric bursitis, right hip 11/01/2022 Osteoarthritis of spine with radiculopathy, lumb ar region 11/01/2022 Primary osteoarthritis of right hip 04/29/2022 Sensorineural hearing loss ( SNHL) of left ear with restricted hearing of right ear 03/28/2022 Assessment & Plan (03/28/2022 11:39 AM CDT): Avoid ear cleaning techniques Avoid water to ears Follow up in one year for ear check Continue hearing aids Healthcare maintenance 02/21/2017 Medication management 02/21/2017 Essential hypertension 02/21/2017 Dyslipidemia 02/21/2017 Morbid obesity 02/21/2017 BMI 40.0-44.9, adult 02/21/2017 Neuralgia/neuritis - ankle/foot 07/29/2014 Overview (09/29/2016): Neuropathy of foot Immunizations Immunization Administration Dates Next Due Influenza, Split 03/31/2010,03/26/2009 Influenza, Trivalent, High D ose, Split, Preservative Free, Intramuscular 03/29/2016 Influenza, Trivalent, IM (MDV) 5,03/26/2014,04/02/2013,04/15,05/11/2011,04/28/2011 Influenza, Unspecified 03/26/2022 Pneumococcal Conjugate PCV 13 04/07/2015 Pneumococcal Polysaccharide PPV23 05/04/2012,06/2008 Tdap 08/26/2013 Surgical History Surgery Date Site/Laterality Comments HYSTERECTOMY 1988 Hysterectomy, partial KIDNEY STONE SURGERY kidney stones removed OTHER SURGICAL HISTORY 2016 CVA: Medical Management BACK SURGERY 06/26/2012 - 06/25/2013 fusion in the lumbar region Medical History Medical History Date Comments Arthritis Arthritis Calculus of kidney 2004 kidney stones Hx Other 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 Hx Other Medical Back Surgery; C omments: MDB 03/01/2016 -spinal abscess Hx Other Medical 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 Hx Other Medical CVA; Outcome: i mproved Hypertension Stroke (HCC) TIA Peripheral neuropathy Osteoarthritis Family History Medical History Relation Name Comments Alzheimer's disease Father Alzheime r's Disease; Other Father Diabetes-border line; Parkinsonism Mother Parkinson's dis ease; Arthritis Other Relation Name Status Comments Father Mother Other Social History Tobacco Use Types Packs/Day Years Used Date Smoking Tobacco: Never Smokeless Tobacco: Never Tobacco Cessation:Counseling Given: Not Answered Alcohol Use Standard Drinks/Week Comments Yes 0 (1 standard drink = 0.6 oz pur e alcohol) AUDIT-C Answer Date Recorded Q1: How often do you have a drink containing alcohol? Never 08/03/2022 Q2: How many drinks containi ng alcohol do you have on a typical day when you are drinking? Patient does not drink Q3: How often do you have si x or more drinks on one occasion? Never 08/03/2022 PHQ-2 Answer Date Recorded PHQ-2 Total Score (If total score is 3 or more points, staff should administer the PHQ-9) 0 08/03/2022 Personal Safety Answer Date Recorded Getting School Help Needed Denies 06/23 Comments No Sex and Gender Information Value Date Recorded Sex Assigned at Not on file Legal Sex Female 1:58 PM PASSENGER SCREENER Gender Identity Not on file Sexual Orientation Not on file Obstetrics History Last Filed Vital Signs Vital Sign Reading Time Taken Comments Blood Pressure 132/88 12/30/2023 3:17 PM CDT Pulse 75 12/30/2023 3:17 PM CDT Temperature 36.8 C (98.3 F) 12/30/2023 3:17 PM CDT Respiratory Rate 20 12/30/2023 3:17 PM CDT Oxygen Saturation 96% 12/30/2023 3:17 PM CDT Inhaled Oxygen Concentration - - Weight 95.3 kg (210 lb) 05/13/2024 1:49 PM PASSENGER SCREENER Height 149.9 cm (4' 11.02) 05/13/2024 1:[address] Body Mass Index 42.39 05/13/2024 1:49 PM PASSENGER SCREENER Plan of Treatment Health Maintenance Due Date Last Done Comments Hepatitis B Screening 1963 Well Visit 65+ 2009 Zoster Vaccine (2 of 3) 10/24/2013 08/29/2013 Depression Screening 07/19/2023 07/19/2022, 02/22/20 17 Fall Risk Assessment 08/04/2023 08/04/2022 DTaP/Tdap/Td Vaccine (2 - Td or Tdap) 08/27/2023 08/26/2013 Covid-19 Vaccine (3 - 2023-2 5 season) 2024 06/07/2021, 09/12/2020 Osteoporosis Screening-Bone Density Scan 01/24/2025 01/24/2023, 01/24/2023, 02/04/2016 Influenza Vaccine (#1) 2025 2, 04/01/2021, 03/19/2020, Additional history exists Pneumococcal vaccine 65+ Completed 015, 05/04/2012, 03/26/2009 Colon Cancer Screening-CT Colonography Discontinued 05/25/2015, 05/25/2015, 05/25/2015 Colon Cancer Screening-Colonoscopy Discontinued 05/25/2015, 05/25/2015, 05/25/2015 Colon Cancer Screening-DNA Stool Discontinued 05/25/2015, 05/25/2015, 05/25/2015 Colon Cancer Screening-FIT Discontinued 05/25, 05/25/2015, 05/25/2015 Colon Cancer Screening-FOBT Discontinued 04/28, 05/25/2015, 05/25/2015 Colon Cancer Screening-Sigmoidoscopy Discontinued 05/25/2015, 05/25/2015, 05/25/2015 Colorectal Cancer Screening Discontinued Medical Devices Implanted Type Area Spline Rolling Machine Job Setter Device Identifier Shelf Expiration Date Model / Serial / Lot Spinal Cord Stimulator Spinal Cord Stimulator Left: Spine Lumbar [employer] [place] 52mm Sector Hip Shell Acetabular Gription Sterile Latex Free [id number] - [id number] Implanted:Qty: 1 on 08/03/2022 by Pan Radford MD at [facility] Right: Hip [employer] [id number] 05/25/2032 [id number] / / [id number] [employer] [place] 52mm 36mm Hip Neutral Liner Acetabular Altrx Sterile Latex Free [id number] - [id number] Implanted:Qty: 1 on 08/03/2022 by Pan Radford MD at [facility] Right: Hip [employer] [id number] 05/25/2027 [id number] / / [id number] [employer] [place] 6.5mm 35mm Acetabular Cancellous Screw Bone Sterile 1217-35-500 - [id number] Implanted:Qty: 1 on 08/03/2022 by Pan Radford MD at [facility] Right: Hip [employer] [id number] 02/24/2032 0 / / [id number] [employer] Articul/Wan 36mm Cementless Hip +5mm 06/08 Taper Head Femoral Latex Free [id number] - [id number] Implanted:Qty: 1 on 08/03/2022 by Pan Radford MD at [facility] Right: Hip [employer] [id number] 05/25/2027 [id number] / / [id number] [employer] [place] 105mm Collar Hip 5 Standard Offset Stem Femoral 1010-11-050 - [id number] Implanted:Qty: 1 on 08/03/2022 by Pan Radford MD at [facility] Right: Hip [employer] [id number] 05/25/2032 1010-04-30 0 / / [id number] Procedures Procedure Name Priority Date/Time Associated Diagnosis Comments DEXA SCAN Routine 02/04/2016 COLONOSCOPY IMAGES 05/25/2015 from Last 3 Months or Most Recently Relevant to Health Maintenance Results * DEXA SCAN (02/04/2016) DEXA Scan Abnormal Comment:Osteopenia us Historical Provider HEALTH MAINTENANCE Final Result * COLONOSCOPY IMAGES (05/25/2015) Anatomical Region Laterality Modality Other Narrative 05/25/2015 Ordered by an unspecified provider. us Historical Provider GI PROCEDURE ORDERABLES F inal Result from Last 3 Months or Most Recently Relevant to Health Maintenance Insurance [facility] [place]IC[place] [id number] [place] Advance Directives For more information, please contact: [phone] Documents on File Type Date Recorded Patient Prestidigitator Expl anation Power of Transportation Dispatcher 08/03/2022 8:56 AM Advance Directives and Livin g Will 08/03/2022 8:56 AM * Full Code (Latest Code Status on File) Date Activated Date Inactivated Comments 08/03/2022 2:59 PM 08/04/2022 6:35 PM Care Teams Calender Operator Relationship Specialty Start Date End Date Salvatore Tavarez MD [address] [address] PCP - General 09/23/16 Pan Radford MD [address] [place] [address] [address] [place] [address] Surgeon Orthopedic Surgery 08/04/22
--- OUTSIDE RECORDS SUMMARY | 2025-02-27 12:21 | XMS_ITS | Patient Health Record ---
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 Name Role Phone Salvatore Tavarez Primary Care Provider Unavail able JordantraciSamanta Unavailable [phone] Results Component Value Reference Range Notes PTH, INTACT AND CALCIUM Reviewed date:08/19/2024 04:26:09 PM Interpretation: Performing Lab:[facility] Fwd: [facility], [address] [place], [address] Silas Briceño MD Notes/Report: NON-FASTING PARATHYROID HORMONE, INTACT 58 16-77 pg/mL Interpretive Guide Intact PTH Calcium ------- Normal Parathyroid Normal Normal Hypoparathyroidism Low or Low Normal Low Hyperparathyroidism Primary Normal or High High Secondary High Normal or Low Tertiary High High Non-Parathyroid Hypercalcemia Low or Low Normal High CALCIUM 9.5 8.6-10.4 mg/dL MICROALBUMIN, RANDOM URINE ( W/CREATININE) Reviewed date:08/19/2024 04:26:15 PM Interpretation: Performing Lab:[facility] Fwd: [facility], [address] [place], [address] Silas Briceño MD Notes/Report: NON-FASTING; NON-FASTING; NON-FASTING; NON-FASTING; NON-FAST CREATININE, RANDOM URINE 221 20-275 mg/dL ALBUMIN, URINE 2.1 See Note: mg/dL Reference Range: Reference Range Not established ALBUMIN/CREATININE RATIO, RANDOM URINE 10 <30 mg/g creat The ADA defines abnormalities in albumin excretion as follows: Albuminuria Category Result (mg/g creatinine) Normal to Mildly increased <30 Moderately increased 30-299 Severely increased > OR = 300 The ADA recommends that at least two of three specimens collected within a 3-6 month period be abnormal before considering a patient to be within a diagnostic category. URINALYSIS, COMPLETE W/REFLE X TO CULTURE Reviewed date:08/19/2024 04:26:56 PM Interpretation: Performing Lab:[facility], [address] [place], [address] Silas Briceño MD Notes/Report: NON-FASTING; NON-FASTING; NON-FASTING; NON-FASTING; NON-FAST COLOR DARK YELLOW YELLOW APPEARANCE CLEAR CLEAR SPECIFIC GRAVITY 1.027 1.001-1.035 PH < OR = 5.0 5.0-8.0 GLUCOSE NEGATIVE NEGATIVE BILIRUBIN NEGATIVE NEGATIVE KETONES NEGATIVE NEGATIVE OCCULT BLOOD NEGATIVE NEGATIVE PROTEIN NEGATIVE NEGATIVE NITRITE NEGATIVE NEGATIVE LEUKOCYTE ESTERASE NEGATIVE NEGATIVE WBC 6-10 < OR = 5 /HPF RBC 0-2 < OR = 2 /HPF SQUAMOUS EPITHELIAL CELLS 20-40 < OR = 5 /HPF BACTERIA FEW NONE SEEN /HPF CALCIUM OXALATE CRYSTALS FEW NONE OR FEW /HPF HYALINE CAST > 60 NONE SEEN /LPF REFLEXIVE URINE CULTURE CULT URE INDICATED - RESULTS TO FOLLOW CULTURE, URINE, ROUTINE SEE NOTE CULTURE, URINE, ROUTINE Micro Number: [id number] Test Status: Final Specimen Source: Urine Specimen Quality: Adequate Result: Mixed genital schuyler isolated. These superficial bacteria are not indicative of a urinary tract infection. No further organism identification is warranted on this specimen. If clinically indicated, recollect clean-catch, mid-stream urine and transfer immediately to Urine Culture Transport Tube. CBC (H/H, RBC, INDICES, WBC, PLT) Reviewed date:08/19/2024 04:26:48 PM Interpretation: Performing Lab:[facility] Fwd: [facility], [address] [place], [address] Silas Briceño MD Notes/Report: NON-FASTING; NON-FASTING; NON-FASTING; NON-FASTING; NON-FAST WHITE BLOOD CELL COUNT 7.8 3.8-10.8 Thousand/ uL RED BLOOD CELL COUNT 4.17 3.80-5.10 Million/uL HEMOGLOBIN 13.5 11.7-15.5 g/dL HEMATOCRIT 40.1 35.0-45.0 % MCV 96.2 80.0-100.0 fL MCH 32.4 27.0-33.0 pg MCHC 33.7 32.0-36.0 g/dL For adults, a slight decrease in the calculated MCHC value (in the range of 30 to 32 g/dL) is most likely not clinically significant; however, it should be interpreted with caution in correlation with other red cell parameters and the patient's clinical condition. RDW 12.7 11.0-15.0 % PLATELET COUNT 210 140-400 Thousand/uL MPV 10.0 7.5-12.5 fL VITAMIN D, 25-HYDROXY, LC/MS /MS Reviewed date:08/19/2024 04:26:36 PM Interpretation: Performing Lab:[facility] Fwd: [facility], [address] [place], [address] Silas Briceño MD Notes/Report: NON-FASTING; NON-FASTING; NON-FASTING; NON-FASTING; NON-FAST VITAMIN D,25-OH,TOTAL,IA 37 30-100 ng/mL Vitamin D Status 25-OH Vitamin D: Deficiency: <20 ng/mL Insufficiency: 20 - 29 ng/mL Optimal: > or = 30 ng/mL For 25-OH Vitamin D testing on patients on D2-supplementation and patients for whom quantitation of D2 and D3 fractions is required, the QuestAssureD(TM) 25-OH VIT D, (D2,D3), LC/MS/MS is recommended: order code 75069 (patients >2yrs). See Note 1 Note 1 For additional information, please refer to http://education.TDI Bassline/faq/EZK122 (This link is being provided for informational/ educational purposes only.) RENAL FUNCTION PANEL Reviewed date:08/19/2024 04:26:28 PM Interpretation: Performing Lab:[facility] Fwd: [facility], [address] [place], [address] Silas Briceño MD Notes/Report: NON-FASTING; NON-FASTING; NON-FASTING; NON-FASTING; NON-FAST GLUCOSE 100 65-99 mg/dL Fasting reference interval For someone without known diabetes, a glucose value between 100 and 125 mg/dL is consistent with prediabetes and should be confirmed with a follow-up test. UREA NITROGEN (BUN) 31 7-25 mg/dL CREATININE 1.72 0.60-1.00 mg/dL EGFR 30 > OR = 60 mL/min/1.73m2 BUN/CREATININE RATIO 18 6-22 (calc) SODIUM 141 135-146 mmol/L POTASSIUM 4.4 3.5-5.3 mmol/L CHLORIDE 102 98-110 mmol/L CARBON DIOXIDE 29 20-32 mmol/L CALCIUM 9.5 8.6-10.4 mg/dL PHOSPHATE ( PHOSPHORUS) 4.3 2.1-4.3 mg/dL ALBUMIN 4.3 3.6-5.1 g/dL Enhanced PDF Report [id number]-1 (Not yet reviewed by provider) Interpretation: Performing Lab: Notes/Report: NON-FASTING; NON-FASTING; NON-FASTING; NON-FASTING; NON-FAST Clinical PDF Report [id number] (Not yet reviewed by provider) Interpretation: Performing Lab: Notes/Report: NON-FASTING; NON-FASTING; NON-FASTING; NON-FASTING; NON-FAST Clinical PDF Report [id number] (Not yet reviewed by provider) Interpretation: Performing Lab: Notes/Report: NON-FASTING Reason For Referral No Information Medications Medication SIG (Take, Route, Frequency, Duration) Notes Start Date End Date Status Gabapentin 800 MG 1 tablet Orally Thre e times a day Active Vitamin B-12 1000 MCG 1 tablet Orally On ce a day Active Probiotic - Orally Active Carvedilol 12.5 MG 1 tablet Orally twic e a day Active Magnesium 250 MG 2 Tablets Orally Onc e a day Not-Taking Valsartan-hydroCHLOROthia zide 160-25 MG 1 tablet Orally Once a day Active Vitamin D3 25 MCG (1000 UT) 1 capsule Orally Once a day Active Aspirin 325 MG 1 tablet Orally Once a day Active Atorvastatin Calcium 40 MG 1 tablet Orally Once a day Active HYDROcodone-Acetaminophen 7.5-325 MG/15ML 5 ml as needed Orally every 6 hrs Active Stool Softener 100 MG 1 capsule as neede d Orally Once a day Active Vitamin C 1000 MG 1 tablet Orally Once a day; Duration: 30 day(s) Active Potassium 99 MG 1 tablet Orally Once a day; Duration: 30 day(s) Active Calcium 600-200 MG-UNIT 1 tablet with fo od Orally Twice a day; Duration: 30 day(s) Active Multivitamin Adult - Orally Active Social History Alcohol Screen Question Answer Notes Did you have a drink containing alcohol in the p ast year? No Points 0 Interpretation Negative Problems Problem Type SNOMED Code ICD Code Onset Dates Problem Status W/U Status Risk Notes Problem Anemia in chronic kidney disease (104578746) Anemia in chronic kidney disease (D63.1) Active confirmed Problem Chronic kidney disease stage 3 (disorder) (354341429) Chronic kidney disease, stage 3 (moderate) (N18.3) Active confirmed Problem Chronic kidney disease stage 4 (850351877) Chronic kidney disease, stage 4 (severe) (N18.4) Active confirmed Problem Calculus of kidney (37891025) Calculus of kidney (N20.0) Active confirmed followed by urology. 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 Continue current management, targeting a blood pressure 140 over 90 or less. Problem Chronic kidney disease due to hypertension (48358679936039 0) Hypertensive chronic kidney disease with stage 1 through stage 4 chronic kidney disease, or unspecified chronic kidney disease (I12.9) Active confirmed With blood pressure well controlled. Problem Chronic kidney disease stage 3B (disorder) (146729674) Chronic kidney disease, stage 3b (N18.32) Active confirmed presumed from hypertensive nephrosclerosi s, with stable renal function. Vital Signs Heart Rate 69 /min 11/05/2024 Blood pressure diastolic 76 mm Hg 11/05/2024 Height 60 in 11/05/2024 Blood pressure systolic 113 mm Hg 11/05/2024 Weight 211 lbs 11/05/2024 BMI 41.2 kg/m2 11/05/2024 Encounters Encounter Location Date Provider Diagnosis [facility] [address] [place] [address] [address] [place], [place] [id number] 11/05/2024 Samanta Pagan Hypertensive chronic kidney disease with stage 1 through stage 4 chronic kidney disease, or unspecified chronic kidney disease I12.9 ; Chronic kidney disease, stage 3b N18.32 ; Calculus of kidney N20.0 and Other hydronephrosis N13.[address], [place] [id number] 08/07/2024 Samanta Pagan Chronic kidney disease, stage 3b N18.32 ; Proteinuria, unspecified R80.9 and Anemia in chronic kidney disease D63.1 Assessments Encounter Date Diagnosis (ICD Code) Assessment Notes Treatment Notes Treatment Clinical Notes Section Notes 08/07/2024 Chronic kidney disease, stage 3b (ICD-10 - N18.32) 11/05/2024 Hypertensive chronic kidney disease with stage 1 through stage 4 chronic kidney disease, or unspecified chronic kidney disease (ICD-10 - I12.9) With blood pressure well controlled. well controlled, with readings at target. Will continue same regimen. 11/05/2024 Chronic kidney disease, stage 3b (ICD-10 - N18.32) presumed from hypertensive nephrosclerosis , with stable renal function. With stable renal function, will continue current management. she will not benefit from Farxiga or SABI inhibitor/ARBs, because she is neither diabetic nor does she has significant proteinuria. 08/07/2024 Proteinuria, unspecified (ICD-10 - R80.9) 08/07/2024 Anemia in chronic kidney disease (ICD-10 - D63.1) 11/05/2024 Calculus of kidney (ICD-10 - N20.0) followed by urology. Quiescent quiescent. Advised to drink a lot of water 11/05/2024 Other hydronephrosis (ICD-10 - N13.39) of the left kidney from kidney stone, followed by urology. Resolved on the ultrasound of 04/26/2022. 11/05/2024 Other AssessmentChronic kidney disease stage 3b due to hypertension (ICD-10: N18.33, I10) Hypertension, well controlled (ICD-10: I10) Stable laboratory values and overall clinical status PlanContinue the current medication regimen including probiotic tablet, hydrocodone, gabapentin, baby aspirin, vitamin D, vitamin C, magnesium with potassium supplementation as needed, calcium when available, stool softener, and multivitamin. Advise ongoing regular home blood pressure monitoring and stress the importance of adequate hydration to help prevent kidney stone formation. Reinforce routine laboratory monitoring to continue assessing kidney function and overall metabolic status. Plan Of Treatment Pending Test Test Name Order Date RENAL FUNCTION PANEL 09/06/2016 Clinical PDF Report [id number] 10/07/19 22 Clinical PDF Report [id number] 01/30/20 24 Clinical PDF Report [id number] 08/08/19 25 Clinical PDF Report [id number] 08/07/19 25 Clinical PDF Report [id number] 02/13/20 19 Clinical PDF Report [id number] 02/13/20 19 Clinical PDF Report [id number] 08/17/19 Clinical PDF Report [id number] 08/12/19 21 Enhanced PDF Report [id number] 08/07/19 Future Test Test Name Order Date Ultrasound : Kidneys and Bladder RENAL FUNCTION PANEL 04/19/2022 Next Appt Details Provider Name:Samanta Dietz i, 05/06/2025 01:30:00 PM, [address] [facility], [facility] [address], [place], [place], [id number], Insurance Providers Payer Name Payer Address Payer Phone Subscriber Number Group Number Insured Name Patient Relationship to Insured Coverage Start Date Coverage End Date [facility] [address] [place] [id number] Licha Pugh Self - patient is the insured MEDICARE PART B [address] [address] [place], [place] [id number] [phone] [id number] Licha Pugh Self - patient is the insured Medical (General) History Medical History History ICD Code CKD 3 HTN Nephrolithiasis Left hydronephrosis Epidural abscess
--- OUTSIDE RECORDS SUMMARY | 2025-02-27 12:21 | XMS_ITS | Encounter Summary ---
Author Organization [facility] Address [address] [place] [address] Phone Care Team Providers Care Meals On Wheels Driver Name Role Phone Salvatore Tavarez MD Primary Care Provider [phone] Reason for Referral * Radiology Services (Routine) - Authorized Specialty Diagnoses / Procedures Referred By Contac t Referred To Contact Radiology Diagnoses Visit for screening mammogram Procedures PAULA SCREENING BILATERAL DIGITAL W CAD W Salvatore Choudhury MD [address] [place] [address] Phone: tel: fax: Referral ID Status Reason Start Date Expiration Date V isits Requested Visits Authorized [id number] Authorized 02/10/2025 1 1 Encounter Details Date Type Department Care Team (Late st Contact Info) Description 02/10/2025 Transcribe Orders [facility] [address] [place] [address] [place] [address] Salvatore Tavarez MD [address] [place] [address] Visit for screening mammogram (Primary Dx) Social History Tobacco Use Types Packs/Day Years Used Date Smoking Tobacco: Never Assessed Comments No Sex and Gender Information Value Date Recorded Sex Assigned at Not on file Legal Sex Female 9:01 PM CDT Gender Identity Not on file Sexual Orientation Not on file documented as of this encounter Plan of Treatment Upcoming Encounters Date Type Department Care Team (Late st Contact Info) Description 03/07/2025 1:45 PM CDT Appointment [facility] [address] [place] [address] Salvatore Tavarez MD [address] [place] [address] Discharge Disposition: Discharged to home or Selfcare Scheduled Orders Name Type Priority Associated Diagnoses Orde r Schedule PAULA SCREENING BILATERAL DIGITAL W CAD W KACIE Imaging Routine Visit for screening mammogram Expected: 02/10/2025, Expires: 02/10/2026 documented as of this encounter Visit Diagnoses Diagnosis Visit for screening mammogram- Primary Other screening mammogram documented in this encounter Care Teams Meals On Wheels Driver Relationship Specialty Start Date End Date Salvatore Tavarez MD [address] [place] [address] PCP - General Internal Medicine 12/02/22 documented as of this encounter
--- OUTSIDE RECORDS SUMMARY | 2025-02-27 12:22 | XMS_ITS | Patient Health Record ---
Author Organization [facility] Address [address] [place] [address] [place] [address] Care Team Providers Care Crushing Foreman Name Role Phone VEENA HUANG MD Primary Care Provider Jian Aric Kim Unavailable [phone] ALLERGIES No Known Allergies REASON FOR REFERRAL No Information MEDICATIONS Medication SIG (Take, Route, Frequency, Duration) Notes Start Date End Date Status HYDROcodone-Acetaminophen 10-325 MG 1 tablet as needed Orally every 6 hrs Active Gabapentin 800 MG 1 tablet Orally 3x/day Active Valsartan-hydroCHLOROthiazi de 160-25 MG 1 tablet Orally Once a day Active Aspirin 325 MG 1 tablet Orally Once a day for 30 day(s) Active Carvedilol 12.5 MG 1 tablet with food O rally Twice a day for 30 day(s) Active Atorvastatin Calcium 40 MG 1 tablet Oral ly Once a day for 30 day(s) Active Magnesium 400 MG as directed Orally Active Vitamin B12 100 MCG as directed Orally Active SOCIAL HISTORY Tobacco Use: Social History Observation Description Date Details (start date - stop date) Never Smoker NA - NA Sex Assigned At : Social History Observation Description Sex Assigned At Unknown Tobacco Use/Smoking Question Answer Notes Are you a nonsmoker Section Notes: 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 She is with two children. She denies tobacco, alcohol, or illicit drug abuse. 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 She is with two children. She denies tobacco, alcohol, or illicit drug abuse. 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 She is with two children. She denies tobacco, alcohol, or illicit drug abuse. The patient is a retired [employer] [place]. She is with two children. She denies tobacco, alcohol, or illicit drug abuse. The patient is a retired [employer] [place]. She is with two children. She denies tobacco, alcohol, or illicit drug abuse. The patient is a retired [employer] [place]. She is with two children. She denies tobacco, alcohol, or illicit drug abuse. The patient is a retired [place]. She is with two children. She denies tobacco, alcohol, or illicit drug abuse. The patient is a retired [place]. She is with two children. She denies tobacco, alcohol, or illicit drug abuse. The patient is a retired [place]. She is with two children. She denies tobacco, alcohol, or illicit drug abuse. The patient is a retired [employer] [place]. She is with two children. She denies tobacco, alcohol, or illicit drug abuse. The patient is a retired [employer] [place]. She is with two children. She denies tobacco, alcohol, or illicit drug abuse. The patient is a retired [employer] [place]. She is with two children. She denies tobacco, alcohol, or illicit drug abuse. The patient is a retired [employer] [place]. She is with two children. She denies tobacco, alcohol, or illicit drug abuse. The patient is a retired [employer] [place]. She is with two children. She denies tobacco, alcohol, or illicit drug abuse. The patient is a retired [employer] [place]. She is with two children. She denies tobacco, alcohol, or illicit drug abuse. The patient is a retired [employer] [place]. She is with two children. She denies tobacco, alcohol, or illicit drug abuse. The patient is a retired [employer] [place]. She is with two children. She denies tobacco, alcohol, or illicit drug abuse. The patient is a retired [employer] [place]. She is with two children. She denies tobacco, alcohol, or illicit drug abuse. The patient is a retired [employer] [place]. She is with two children. She denies tobacco, alcohol, or illicit drug abuse. The patient is a retired [employer] [place]. She is with two children. She denies tobacco, alcohol, or illicit drug abuse. The patient is a retired [employer] [place]. She is with two children. She denies tobacco, alcohol, or illicit drug abuse. The patient is a retired [employer] [place]. She is with two children. She denies tobacco, alcohol, or illicit drug abuse. The patient is a retired [employer] [place]. She is with two children. She denies tobacco, alcohol, or illicit drug abuse. The patient is a retired [employer] [place]. She is with two children. She denies tobacco, alcohol, or illicit drug abuse. The patient is a retired [employer] [place]. She is with two children. She denies tobacco, alcohol, or illicit drug abuse. The patient is a retired [employer] [place]. She is with two children. She denies tobacco, alcohol, or illicit drug abuse. PROBLEMS Problem Type ICD Code Onset Dates Problem Status W/U Status Risk SNOMED Code Notes Problem Fear of injections and transfusions (F40.231) Active confirmed Fear of medical treatment (144863308) Problem Chronic pain syndrome (G89.4) Active confirmed Chronic yuval n syndrome (249973445) Problem Unilateral primary osteoarthritis, right hip (M16.11) Active confirmed Localized , primary osteoarthritis of the pelvic region and thigh (169249682) Problem Osteoarthritis of hip, unspecified (M16.9) Active confirmed Osteoarthritis of hip (377281453) Problem Pain in right hip (M25.551) Active confirmed Arthralgia of t he pelvic region and thigh (923754755) Problem Sacroiliitis, not elsewhere classified (M46.1) Active confirmed Solitary sacroiliitis (699099027) Problem Spondylosis without myelopathy or radiculopathy, lumbar region (M47.816) Active confirmed Lumbosacral spondylosis without myelopathy (75945390) Problem Spondylosis without myelopathy or radiculopathy, lumbosacral region (M47.817) Active confirmed Lumbosacral spondylosis without myelopathy (disorder) (26681266) Problem Other intervertebral disc degeneration, lumbar region (M51.36) Active confirmed Degeneration of lumbar intervertebral disc (11283664) Problem Radiculopathy, lumbar region (M54.16) Active confirmed Lumbar radiculopathy (594451251) Problem Postlaminectomy syndrome, not elsewhere classified (M96.1) Active confirmed Post-lami nectomy syndrome (17754321) Problem Osseous stenosis of neural canal of lumbar region (M99.33) Active confirmed Spinal stenosis of lumbar region (95381448) Problem USP (current) use of anticoagulants (Z79.01) Active confirmed Long-term curre nt use of anticoagulant (292460009) Problem Spinal stenosis, lumbar region with neurogenic claudication (M48.062) Active confirmed Neurogenic claudication (816065092) VITAL SIGNS Heart Rate 78 /min 09/03/2024 Post procedure VS=BP 127/71, P 66, R 18, Spo2=94%. Discharged home per ambulatory with walker assistance, in no acute distress. Respiratory Rate 18 /min 09/03/2024 Post procedure VS=BP 127/71, P 66, R 18, Spo2=94%. Discharged home per ambulatory with walker assistance, in no acute distress. Oximetry 94 % 09/03/2024 Post procedure VS=BP 127/71, P 66, R 18, Spo2=94%. Discharged home per ambulatory with walker assistance, in no acute distress. Blood pressure diastolic 88 mm Hg 09/03/2024 Post procedure VS=BP 127/71, P 66, R 18, Spo2=94%. Discharged home per ambulatory with walker assistance, in no acute distress. Height 4 ft 11 in in 09/03/2024 Post procedure VS=BP 127/71, P 66, R 18, Spo2=94%. Discharged home per ambulatory with walker assistance, in no acute distress. Blood pressure systolic 134 mm Hg 09/03/2024 Post procedure VS=BP 127/71, P 66, R 18, Spo2=94%. Discharged home per ambulatory with walker assistance, in no acute distress. Weight 211 lbs 09/03/2024 Post procedure VS=BP 127/71, P 66, R 18, Spo2=94%. Discharged home per ambulatory with walker assistance, in no acute distress. BMI 42.61 kg/m2 09/03/2024 Post procedure VS=BP 127/71, P 66, R 18, Spo2=94%. Discharged home per ambulatory with walker assistance, in no acute distress. Encounters Encounter Location Date Provider Diagnosis [facility] [address] [place] [address] [place] [address] 03/05/2024 Aric Stynowick Radiculopathy, lumba r region M54.16 ; Postlaminectomy syndrome, not elsewhere classified M96.1 ; Chronic pain syndrome G89.4 ; Fear of injections and transfusions F40.231 ; Other intervertebral disc degeneration, lumbar region M51.36 and Unilateral primary osteoarthritis, right hip M16.11 [facility] [address] [place] [address] 05/14/2024 Aric Stynowick Radiculopathy, lumba r region M54.16 ; Postlaminectomy syndrome, not elsewhere classified M96.1 ; Chronic pain syndrome G89.4 ; Fear of injections and transfusions F40.231 ; Other intervertebral disc degeneration, lumbar region M51.36 and Unilateral primary osteoarthritis, right hip M16.11 [facility] [address] [place] [address] 08/26/2024 Aric Stynowick Radiculopathy, lumba r region M54.16 ; Spondylosis without myelopathy or radiculopathy, lumbar region M47.816 ; Postlaminectomy syndrome, not elsewhere classified M96.1 ; Chronic pain syndrome G89.4 ; Fear of injections and transfusions F40.231 ; Other intervertebral disc degeneration, lumbar region M51.36 ; Unilateral primary osteoarthritis, right hip M16.11 ; Spondylosis without myelopathy or radiculopathy, lumbosacral region M47.817 and USP (current) use of anticoagulants Z79.01 [facility] [address] [place] [address] 08/27/2024 Aric Stynyumikoick Spondylosis without myelopathy or radiculopathy, lumbar region M47.816 and Spondylosis without myelopathy or radiculopathy, lumbosacral region M47.817 [facility] [address] [place] [address] 08/28/2024 Aric Kirby [facility] [address] [place] [address] 09/03/2024 Aric Kirby Radiculopathy, lumba r region M54.16 ; Spinal stenosis, lumbar region with neurogenic claudication M48.062 and Osseous stenosis of neural canal of lumbar region M99.33 [facility] [address] [facility] [place] [address] 09/04/2024 Aric Kirby [facility] [address] [facility] [place] [address] 09/10/2024 Aric Kirby ASSESSMENTS Encounter Date Diagnosis Assessment Notes Treatment Notes Treatment Clinical Notes Section Notes 03/05/2024 Radiculopathy, lumbar region (ICD-10 - M54.16) The patient's SCS was interrogated reprogrammed in the office today with improved axial low back and bilateral lower extremity neuropathic pain coverage with good paresthesia overlap.She currently denies a need for any injections or interventions at this time. She would like to return to the office in 1 month for follow-up and reevaluation of her pain at that time. 03/05/2024 Postlaminectomy syndrome, not elsewhere classified (ICD-10 - M96.1) 05/14/2024 Radiculopathy, lumbar region (ICD-10 - M54.16) The patient's SCS was interrogated reprogrammed in the office today with improved axial low back and bilateral lower extremity neuropathic pain coverage with good paresthesia overlap. She currently denies a need for any injections or interventions at this time. She would like to return to the office in 1 month for follow-up and reevaluation of her pain at that time. 05/14/2024 Postlaminectomy syndrome, not elsewhere classified (ICD-10 - M96.1) 08/26/2024 Spondylosis without myelopathy or radiculopathy, lumbar region (ICD-10 - M47.816) schedule a bilateral L1-3 medial branch nerve block as a diagnostic and potentially therapeutic endeavor to isolate the source of the patient's facet-generated low back pain originating from the L2-3 and L3-4 facet joints and to ultimately perform radiofrequency ablation for more durable pain relief. The risks of this procedure including pain, bleeding, [...] is agreeable to proceeding at this time. 08/27/2024 Spondylosis without myelopathy or radiculopathy, lumbar region (ICD-10 - M47.816) 08/27/2024 Spondylosis without myelopathy or radiculopathy, lumbosacral region (ICD-10 - M47.817) 09/03/2024 Radiculopathy, lumbar region (ICD-10 - M54.16) 08/26/2024 Radiculopathy, lumbar region (ICD-10 - M54.16) The patient's pain continues she may benefit from scheduling a left L3-4 and L5-S1 transforaminal epidural steroid injection. The risks of this procedure including pain, bleeding, [...] is agreeable to proceeding at this time. 09/03/2024 Spinal stenosis, lumbar region with neurogenic claudication (ICD-10 - M48.062) 08/26/2024 Postlaminectomy syndrome, not elsewhere classified (ICD-10 - M96.1) 09/03/2024 Osseous stenosis of neural canal of lumbar region (ICD-10 - M99.33) 05/14/2024 Chronic pain syndrome (ICD-10 - G89.4) 03/05/2024 Chronic pain syndrome (ICD-10 - G89.4) 03/05/2024 Fear of injections and transfusions (ICD-10 - F40.231) 05/14/2024 Fear of injections and transfusions (ICD-10 - F40.231) 08/26/2024 Chronic pain syndrome (ICD-10 - G89.4) 08/26/2024 Fear of injections and transfusions (ICD-10 - F40.231) 03/05/2024 Other intervertebral disc degeneration, lumbar region (ICD-10 - M51.36) 05/14/2024 Other intervertebral disc degeneration, lumbar region (ICD-10 - M51.36) 03/05/2024 Unilateral primary osteoarthritis, right hip (ICD-10 - M16.11) 05/14/2024 Unilateral primary osteoarthritis, right hip (ICD-10 - M16.11) 08/26/2024 Other intervertebral disc degeneration, lumbar region (ICD-10 - M51.36) 08/26/2024 Unilateral primary osteoarthritis, right hip (ICD-10 - M16.11) 08/26/2024 Spondylosis without myelopathy or radiculopathy, lumbosacral region (ICD-10 - M47.817) 08/26/2024 USP (current) use of anticoagulants (ICD-10 - Z79.01) The patient was instructed to discontinue aspirin for 6 days prior to the procedure. I made the patient aware that they will be at an increased risk for a thromboembolic event during this time and they are willing to accept this risk. The patient was instructed to notify their primary care physician and/or build engineer to obtain clearance prior to discontinuing this medication. 05/14/2024 Other The above-named patient was evaluated in conjunction with Dr. Kirby. I have discussed and reviewed all of the pertinent history, physical examination findings and diagnostic imaging results with him. As a result of our discussion, Dr. Kirby has determined the above assessment and directed the treatment plan. This note was dictated using voice recognition software and therefore inadvertent errors may have occurred. This note was dictated by HIGINIO Littlejohn. Total Time Spent with Patient and Medical Decision Makin minutes 08/26/2024 Other The above-named patient was evaluated in conjunction with Dr. Kirby. I have discussed and reviewed all of the pertinent history, physical examination findings and diagnostic imaging results with him. As a result of our discussion, Dr. Kirby has determined the above assessment and directed the treatment plan. This note was dictated using voice recognition software and therefore inadvertent errors may have occurred. This note was dictated by HIGINIO Littlejohn. Total Time Spent with Patient and Medical Decision Makin minutes 08/27/2024 Other The patient voiced understanding of [...] for infection: Implements aseptic technique, protects from cross-contaminatio n, performs skin preparations. Pain/Discomfort: Patient verbalizes acceptable level of pain relief prior to discharge and the ability to engage in desired activity. I HAVE REVIEWED THE PATIENT'S MEDICATION LIST AND HAVE RECONCILED THE ABOVE MEDICATIONS. PATIENT GOALS AND SAFETY CONCERNS HAVE BEEN ADDRESSED. RN initials CR 09/03/2024 Other The patient voiced understanding of [...] for infection: Implements aseptic technique, protects from cross-contaminatio n, performs skin preparations. Pain/Discomfort: Patient verbalizes acceptable level of pain relief prior to discharge and the ability to engage in desired activity. I HAVE REVIEWED THE PATIENT'S MEDICATION LIST AND HAVE RECONCILED THE ABOVE MEDICATIONS. PATIENT GOALS AND SAFETY CONCERNS HAVE BEEN ADDRESSED. RN initials CR PLAN OF TREATMENT Pending Test Test Name Order Date XRAY right shoulder 03/29/2021 Insurance Providers Payer Name Payer Address Payer Phone Subscriber Number Group Number Insured Name Patient Relationship to Insured Coverage Start Date Coverage End Date Medicare [place] [address] [address] [place] [phone] [id number] ASHLEY OSMAN Self - patient is the insured [facility] [address] [address] [place] [phone] [id number] ASHLEY OSMAN Self - patient is the insured MEDICAL (GENERAL) HISTORY Medical History History ICD Code Renal Stones Polycystic Kidney Disease Transient Ischemic Attack Hypertension Surgical History Surgery Date(Month/Year) Hysterectomy L3-5 lumbar laminectomy (Spinal Abscess - E.Coli) 04/2013
--- OUTSIDE RECORDS SUMMARY | 2025-02-27 12:23 | XMS_ITS | Clinical Summary ---
Author Organization [facility] Address [address] [place] [address] Phone Care Team Providers Care Honing Machine Try Out Setter Name Role Phone Salvatore Tavarez MD Primary Care Provider [phone] Allergies No known active allergies Medications diclofenac (VOLTAREN) 25 MG Tablet Delayed Response 2 times daily. Activ e Meloxicam 15 MG Tablet daily. Active Cyanocobalamin (B-12) 1000 MCG Capsule Active gabapentin (NEURONTIN) 600 MG Tablet Active metoprolol tartrate (LOPRESSOR) 25 MG Tablet Active lisinopril (PRINIVIL, ZESTRIL) 40 MG Tablet Active Cholecalciferol (VITAMIN D3) 47156 UNITS Capsule Active estradiol (ESTRACE) 1 MG Tablet Hazardous: Medication requires special safe handling and disposal. Active Oxycodone-Aceta minophen (PERCOCET) 2.5-325 MG Tablet Active oxyCODONE (OXYCONTIN) 10 MG Tablet Extended Release 12 hour Abuse-Deterrent Acti ve oxyCODONE (OXYCONTIN) 20 MG Tablet Extended Release 12 hour Abuse-Deterrent Acti ve saccharomyces boulardii (FLORASTOR) 250 MG Capsule Active Calcium Carb-Cholecalci ferol (CALTRATE 600+D) 600-800 MG-UNIT Tablet Activ e zaleplon (SONATA) 5 MG Capsule Active Active Problems Problem Noted Date Diagnosed Date Onychia and paronychia Overview (02/25/2015): R Hallux Lateral Nail Border Pain in limb Osteoporosis Encounters Date Type Department Care Team Description 02/10/2025 Transcribe Orders [address] [place] [address] Salvatore Tavarez MD Visit for screening mammogram (Primary Dx) from Last 3 Months Social History Tobacco Use Types Packs/Day Years Used Date Smoking Tobacco: Never Assessed Comments No Sex and Gender Information Value Date Recorded Sex Assigned at Not on file Legal Sex Female 9:01 PM CDT Gender Identity Not on file Sexual Orientation Not on file Last Filed Vital Signs Vital Sign Reading Time Taken Comments Blood Pressure 117/73 09/26/2024 11:29 AM CDT Pulse 78 03/26/2024 1:36 PM CDT Temperature 36.1 C (97 F) 09/26/2024 11:29 AM CDT Respiratory Rate 16 09/26/2024 11:29 AM CDT Oxygen Saturation 97% 09/26/2024 11:29 AM CDT Inhaled Oxygen Concentration - - Weight 97.5 kg (215 lb) 03/28/2020 1:18 PM CDT Height 149.9 cm (4' 11) 03/28/2020 1:18 PM CDT Body Mass Index 43.42 03/28/2020 1:18 PM CDT Plan of Treatment Upcoming Encounters Date Type Department Care Team (Late st Contact Info) Description 03/07/2025 1:45 PM CDT [facility] [address] [place] [address] Salvatore Tavarez MD [address] [facility] [address] [id number] Discharge Disposition: Discharged to home or Selfcare Health Maintenance Due Date Last Done Comments Hepatitis C Virus (HCV) Screening 1945 Zoster Immunization (2 of 3) 10/24/2013 08/29/2013 DEXA Bone Density 01/24/2025 01/24/2023 Influenza Immunization (#1) 02/24/202503/28, 04/14/2023, 04/06/2022, Additional history exists SARS-COV-2 Immunization ( season) 2025 06/07/2021, 09/12/2020, 08/13/2020 DTaP/Tdap/Td Immunization Discontinued 08/26/2013 TdaP Immunization Completed 08/26/2013 Pneumococcal Immunization (50+ years) Completed 04/06/2015, 05/04/2012, 03/26/2009 Pneumococcal Immunization Combined Discontinued 04/06/2015, 05/04/2012, 03/26/2009 Respiratory Syncytial Virus (RSV) Immunization (Adult) Completed 02/16/2024 Hepatitis B Immunization Aged Out No longer eligible based on patient's age to complete this topic Human Papillomavirus (HPV) Immunization Aged Out No longer eligible based on patient's age to complete this topic Meningococcal Immunization (ACWY) Aged Out No longer eligible based on patient's age to complete this topic Rotavirus Immunization Aged Out No lo nger eligible based on patient's age to complete this topic Procedures Procedure Name Priority Date/Time Associated Diagnosis Comments [facility] BONE DENSITOMETRY AXIAL SKELETON Routine 01/24/2023 9:40 AM CDT Radiculopathy, lumbar region Disorder of bone density and structure, unspecified from Last 3 Months or Most Recently Relevant to Health Maintenance Results * [facility] BONE DENSITOMETRY AXIAL SKELETON (01/24/2023 9:40 AM CDT) Anatomical Region Laterality Modality BODY N/A Computed Radiogr aphy 02/02/2023 8:33 AM CDT Impressions 02/02/2023 8:36 AM CDT IMPRESSION: Normal bone mineral density. REFERENCE: Bone mineral density: Normal (T-score above or = -1.0) Low bone mass (T-score between -1.0 and -2.5) replaces the previously used term osteopenia Osteoporosis (T-score = or below -2.5) Medical evaluation for secondary causes of low bone mineral density may be appropriate. FRAX is a World Health Organization validated fracture risk assessment tool that calculates a person's 10 year probability of a major osteoporosis related fracture and hip fracture. According to the National Osteoporosis Foundation guidelines, postmenopausal women and men age 50 or older with low bone mass and a 10 year probability of a major osteoporosis related fracture = or greater than 20% or a 10 year probability of a hip fracture = or greater than 3% should be considered for treatment. For further information, including treatment recommendations, please refer to the 2013 ISCD Official Positions (http://www.iscd.org) and the NOF's Clinician's Guide to Prevention and Treatment of Osteoporosis (http://www.nof.org/professionals/clinical-guidelines) Narrative 02/02/2023 8:36 AM CDT EXAM DESCRIPTION: [facility] BONE DENSITOMETRY AXIAL SKELETON REASON FOR STUDY: 77 y/o year old F with given history of screening. 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 AG: MARIA GUADALUPE Report ID: [id number] Reading Location: [id number] Procedure Note Magan Varela MD - 02/02/2023 EXAM DESCRIPTION: [facility] BONE DENSITOMETRY AXIAL SKELETON REASON FOR STUDY: 77 y/o year old F with given history of screening. 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 AG: MARIA GUADALUPE Report ID: [id number] Reading Location: [id number] IMPRESSION: Normal bone mineral density. REFERENCE: Bone mineral density: Normal (T-score above or = -1.0) Low bone mass (T-score between -1.0 and -2.5) replaces the previously used term osteopenia Osteoporosis (T-score = or below -2.5) Medical evaluation for secondary causes of low bone mineral density may be appropriate. FRAX is a World Health Organization validated fracture risk assessment tool that calculates a person's 10 year probability of a major osteoporosis related fracture and hip fracture. According to the National Osteoporosis Foundation guidelines, postmenopausal women and men age 50 or older with low bone mass and a 10 year probability of a major osteoporosis related fracture = or greater than 20% or a 10 year probability of a hip fracture = or greater than 3% should be considered for treatment. For further information, including treatment recommendations, please refer to the 2013 ISCD Official Positions (http://www.iscd.org) and the NOF's Clinician's Guide to Prevention and Treatment of Osteoporosis (http://www.nof.org/professionals/clinical-guidelines) Salvatore Tavarez MD IMG DEXA ORDERABLES Final Result from Last 3 Months or Most Recently Relevant to Health Maintenance Insurance [facility] MEDICARE Care Teams Honing Machine Try Out Setter Relationship Specialty Start Date End Date Salvatore Tavarez MD [address] [phone] PCP - General Internal Medicine 12/02/22
--- OUTSIDE RECORDS SUMMARY | 2025-02-27 12:23 | XMS_ITS | Clinical Summary ---
Author Organization [facility] Address [address] [place] [address] Phone Care Team Providers Care Nursing Home Director Name Role Phone Salvatore Tavarez MD Primary Care Provider [phone] Allergies No known active allergies Medications gabapentin (NEURONTIN) 300 mg capsule 11/25/2013 Active metoprolol tartrate (LOPRESSOR) 25 mg tablet 10/20/2013 Active lisinopril (PRINIVIL) 40 mg tablet 11/18/2013 Active oxyCODONE-acetam inophen (PERCOCET) 7.5-325 mg Tablet 11/29/2013 Active OXYCONTIN 10 mg tablet 11/29/2013 Active estradiol (ESTRACE) 1 mg tablet Take 1 mg by mouth daily. Active CALCIUM CARBONATE/VITAMI N D3 (VITAMIN D-3 ORAL) Take by mouth. Active CALCIUM CARBONATE/VITAMI N D3 (CALTRATE 600 + D ORAL) Take by mouth. Active saccharomyces boulardii (FLORASTOR) 250 mg Capsule Take by mouth. Active cyanocobalamin (VITAMIN B-12) 1,000 mcg Tablet Take 1,000 mcg by mouth daily. Active Biotin 2,500 mcg Tablet Take 2 Tabs by mouth. Active Active Problems Patient Care Coordination No te Formatting of this note migh t be different from the original. Primary Care: Salvatore Tavarez MD Referring Provider: Hunter Hernandez MD [address] [place] [address] [place] [id number] Other: Problem Noted Date Diagnosed Date Screening mammogram for high-risk patient 2013 Abnormal mammogram 12/03/2013 Lump in female breast 11/20/2013 Family History Medical History Relation Name Comments Breast Cancer Neg Hx Ovarian Cancer Neg Hx Social History Tobacco Use Types Packs/Day Years Used Date Smoking Tobacco: Never Smokeless Tobacco: Never Alcohol Use Standard Drinks/Week Comments Yes 0 (1 standard drink = 0.6 oz pur e alcohol) rare Comments No Sex and Gender Information Value Date Recorded Sex Assigned at Not on file Legal Sex Female 9:45 AM CDT Gender Identity Not on file Sexual Orientation Not on file Occupation Industry Job Start Date Job End Date Not on file Not on file Not on file Not on file Last Filed Vital Signs Vital Sign Reading Time Taken Comments Blood Pressure 161/91 12/03/2013 11:40 AM CDT Pulse 77 12/03/2013 11:40 AM CDT Temperature - - Respiratory Rate - - Oxygen Saturation - - Inhaled Oxygen Concentration - - Weight 84.8 kg (187 lb) 12/03/2013 11:40 AM CDT Height 149.9 cm (4' 11) 12/03/2013 11:40 AM CDT Body Mass Index 37.77 12/03/2013 11:40 AM CDT Plan of Treatment Health Maintenance Due Date Last Done Comments ZOSTER VACCINE (1 of 2) 1994 OSTEOPOROSIS SCREENING 2009 RSV VACCINE (60+ or ) (1 - 1-dose 75+ series) 2019 DTAP/TDAP/TD VACCINES (2 - T d or Tdap) 08/27/2023 08/26/2013 INFLUENZA VACCINE (#1) 2025 6, 04/07/2015, 03/26/2014, Additional history exists PNEUMOCOCCAL VACCINE 50+ YEARS Completed 1 , 05/04/2012, 03/26/2009 Insurance MEDICARE PART A AND B BCBS SUPP Care Teams Nursing Home Director Relationship Specialty Start Date End Date Salvatore Tavarez MD PCP - General Internal Medicine 12/03/13
== END 2025-02-27 12:31 | disposition home or self-care (01) ==
PROVIDERS: Emergency Provider Nurse Practitioner; PCP Internal Medicine
DX: L30.9 Dermatitis, unspecified (principal); I10 Essential (primary) hypertension; E78.00 Pure hypercholesterolemia, unspecified; N28.9 Disorder of kidney and ureter, unspecified; G62.9 Polyneuropathy, unspecified
CPT/HCPCS: 99213; G0463